=== PATIENT | male | born 1965 | race Caucasian/White ===

== ENCOUNTER 2017-07-22 00:18 | Emergency (ER) | payer OTHER ==
[2017-07-22] MEDS ORDERED: OXYMETAZOLINE HCL 0.05% NASAL SPRAY 15 ML BOTTLE ONE (01:12)
--- NOTE | 2017-07-22 01:26 | ER Document Report ---
ED ENT - General Chief Complaint: Nose Bleed Stated Complaint: NOSE BLEED Time Seen by Provider: 07/22/17 01:25 Notes: Patient is a 51-year-old male who comes emergency department for chief complaint of epistaxis, symptoms started at 830, he states he began bleeding heavily and despite placing tampons in his nose he continued to bleed around the tampons. He does report some bleeding down the back of his throat. He states he has been taking very frequent ibuprofen for the past couple of days because of skin infection that is healing on his right leg, he is also on Bactrim DS and Keflex. He had does not take any blood thinners, he does not take any daily medications, he does not report frequent history of nosebleeds. TRAVEL OUTSIDE OF THE [place] IN LAST 30 DAYS: No Past Medical History - General Information source: Patient - Social History Smoking Status: Never Smoker Frequency of alcohol use: None Drug Abuse: None Lives with: Family Family History: Reviewed & Not Pertinent Patient has suicidal ideation: No Patient has homicidal ideation: No - Medical History Medical History: Negative Renal/ Medical History: Denies: Hx Peritoneal Dialysis Surgical Hx: Negative - Immunizations Immunizations up to date: Yes Hx Diphtheria, Pertussis, Tetanus Vaccination: Yes Review of Systems - Review of Systems Constitutional: No symptoms reported EENT: See HPI Cardiovascular: No symptoms reported Respiratory: No symptoms reported Gastrointestinal: No symptoms reported Genitourinary: No symptoms reported Male Genitourinary: No symptoms reported Musculoskeletal: No symptoms reported Skin: No symptoms reported Hematologic/Lymphatic: No symptoms reported Neurological/Psychological: No symptoms reported Physical Exam - Vital signs Vitals: Temp Pulse Resp BP Pulse Ox 98.6 F 83 20 138/95 H 95 07/22/17 00:22 07/22/17 00:22 07/22/17 00:22 07/22/17 00:22 07/22/17 00:22 Interpretation: Normal - General General appearance: Alert, Anxious In distress: Severe - HEENT Head: Normocephalic, Atraumatic Eyes: Normal Conjunctiva: Normal Extraocular movements intact: Yes Eyelashes: Normal Pupils: PERRL Ears: Normal Nasal: Epistaxis - Large volume epistaxis with dripping blood mainly from the right nare despite tampon placed in the nasal passage Pharynx: Blood in hypopharynx Neck: Normal - Respiratory Respiratory status: No respiratory distress Chest status: Nontender Breath sounds: Normal Chest palpation: Normal - Cardiovascular Rhythm: Regular Heart sounds: Normal auscultation Murmur: No - Abdominal Inspection: Normal Distension: No distension Bowel sounds: Normal Tenderness: Nontender Organomegaly: No organomegaly - Back Back: Normal, Nontender - Extremities General upper extremity: Normal inspection, Nontender, Normal color, Normal ROM , Normal temperature General lower extremity: Nontender, Normal color, Normal ROM, Normal temperature , Normal weight bearing. No: Normal inspection - Healed areas of skin infection of the right anterior knee, no induration, fluctuance, erythema, or concerning abnormalities, Javier's sign - Neurological Neuro grossly intact: Yes Cognition: Normal Orientation: AAOx4 [place] Coma Scale Eye Opening: Spontaneous [place] Coma Scale Verbal: Oriented [place] Coma Scale Motor: Obeys Commands [place] Coma Scale Total: 15 Speech: Normal Motor strength normal: LUE, RUE, LLE, RLE Sensory: Normal - Psychological Associated symptoms: Normal affect, Normal mood - Skin Skin Temperature: Warm Skin Moisture: Dry Skin Color: Normal Course - Re-evaluation Re-evalutation: Patient initially with very heavy nosebleed, bleeding through her tampon in the nose, bleeding down the back of the throat, large amount of blood and a pale that he brought with him. Patient sputtering. Senior Product [employer] patient in blowing out clots and Rhino Rocket was placed in the right nasal passage. Stewart into epistaxis achieved. Reevaluated patient twice and no rebleeding was noted. CBC unremarkable. Vital signs unremarkable. Discussed with patient. He is already on antibiotic coverage, referring to ENT , discussed use of rhinorocket, discussed return precautions, patient and state understanding and agreement. - Vital Signs Vital signs: Temp Pulse Resp BP Pulse Ox 98.6 F 80 17 131/87 H 100 07/22/17 00:22 07/22/17 02:59 07/22/17 02:59 07/22/17 02:59 07/22/17 02:59 - Laboratory Result Diagrams: 07/22/17 01:40 Laboratory results interpreted by me: 07/22/17 01:40 WBC 11.3 H RBC 4.32 L Procedures - Nosebleed Procedure Right Location: Posterior Supplies used: Rhinorocket Notes: Assisted patient to blow out clots from both sides of the nose, Afrin placed over the Rhino Rocket, Rhino Rocket inserted and advanced until fully in the nasal passage, 5 cc of air used to inflate balloon, patient was not able to tolerate more than 5 ccs. Epistaxis resolved. Multiple re-evaluations with no recurrence of epistaxis. Patient tolerated extremely well. Discharge - Discharge Clinical Impression: Epistaxis Condition: Stable Disposition: HOME, SELF-CARE Additional Instructions: Recommendation is to leave the Rhino Rocket in place for 2 days, in 2 days please follow-up with the ENT referral to have this removed and for additional management. Continue current antibiotics. Take the pain medication if needed. Stop taking aspirin and ibuprofen for now. Return to the emergency department for any concerning worsening symptoms including return of bleeding, fever, or any other concerning symptoms. [facility] Address: [address] [place] [address] , [place] [address] Prescriptions: Morphine Sulfate [Morphine Ir 15 Mg Tablet] 15 mg PO Q4HP PRN #15 tablet PRN Reason: Forms: Return to Work
[2017-07-22 02:02] LABS: ABSOLUTE BASOPHILS # (AUTO) 0.1 10^3/uL (0.0-0.2); ABSOLUTE EOSINOPHILS # (AUTO) 0.5 10^3/uL (0.0-0.6); ABSOLUTE LYMPHOCYTES (AUTO) 2.6 10^3/uL (0.5-4.7); ABSOLUTE MONOCYTES (AUTO) 0.9 10^3/uL (0.1-1.4); ABSOLUTE NEUT (AUTO) 7.3 10^3/uL (1.7-8.2); BASOPHILS % (AUTO) 0.9 % (0-2); EOSINOPHILS % (AUTO) 4.1 % (0-6); HEMATOCRIT 39.4 % (37.9-51.0); HEMOGLOBIN 13.7 g/dL (13.5-17.0); HGB HCT DIFFERENCE 1.7; LYMPHOCYTES % (AUTO) 22.7 % (13-45); MEAN CORPUSCULAR HEMOGLOBIN 31.7 pg (27.0-33.4); MEAN CORPUSCULAR HGB CONC 34.7 g/dL (32.0-36.0); MEAN CORPUSCULAR VOLUME 91 fl (80-97); MONOCYTES % (AUTO) 8.3 % (3-13); RED BLOOD COUNT 4.32 10^6/uL (4.35-5.55); RED CELL DISTRIBUTION WIDTH 13.4 % (11.5-14.0); WHITE BLOOD COUNT 11.3 10^3/uL (4.0-10.5)
[2017-07-22] MEDS ORDERED: OXYCODONE-ACETAMINOPHEN 5-325 MG TABLET PO ONE (02:20)
[2017-07-22] MEDS ORDERED: PROMETHAZINE HCL 25 MG TABLET PO ONE (02:20)
[2017-07-22 03:01] VITALS: BP 131/87
== END 2017-07-22 02:59 | disposition home or self-care (01) ==
LOC: ER 00:18
PROC: 2Y41X5Z Packing of Nasal Region using Packing Material (ICD-10-PCS; principal; 2017-07-22)
DX: R04.0 Epistaxis (principal)
CPT/HCPCS: 36415; 85025; 99283